=== PATIENT | male | born 1950 | race Caucasian/White ===

== ENCOUNTER 2020-10-09 07:51 | Day surgery (SDC) | payer MEDICARE ==
[2020-09-02 11:31] VITALS: BMI 22.4
[~2020-10-09 07:51] MED LIST: LACTATED RINGERS 1,000 ML IV SCH; ONDANSETRON 4 MG/2 ML VIAL IVP PRN
[2020-10-09 08:21] VITALS: TEMP 98.2
[2020-10-09] MEDS ORDERED: PROPOFOL 10 MG/ML 20 ML VIAL IV ONE (09:10)
[2020-10-09] MEDS ORDERED: LIDOCAINE 1% INJ 10MG/ML (20 ML MDV) ONE (09:10)
--- NOTE | 2020-10-09 09:25 | P.PCN ---
Date of Procedure: 10/09/20 Procedure(s) Performed: BRIEF HISTORY: Patient is a 70-year-old pleasant white female male scheduled for an elective colonoscopy as a part of screening for colorectal neoplasia. In January 2020 when he was in [place] he had a CT of the abdomen and pelvis done that showed abnormal-appearing appendix with the possibility of ruptured appendiceal neoplasm versus appendicitis.. He was subsequently seen by surgery and oncology and recommended associated. However he moved to [place]. PROCEDURE PERFORMED: Colonoscopy. PREOPERATIVE DIAGNOSIS: Sreening for colorectal neoplasia. IV sedation per Anesthesia. PROCEDURE: After informed consent was obtained, the patient, was brought into the endoscopy unit. IV sedation was administered by Anesthesia under continuous monitoring. Digital rectal examination was normal. Initially the Olympus CF-160 flexible video colonoscope was then inserted in the rectum, gradually advanced into the cecum without any difficulty. Careful examination was performed as the scope was gradually being withdrawn. Ileocecal valve and the appendiceal orifice were visualized and appeared normal. Prep was excellent. Mucosa of the cecum, ascending colon, transverse colon, descending colon, sigmoid colon, and rectum appeared normal. Scattered left-sided diverticulosis seen. Retroflexion was performed in the rectum and small internal hemorrhoids were seen. The patient tolerated the procedure well. IMPRESSION: Normal-appearing appendiceal orifice Normal-appearing colon from rectum to cecum with no evidence of colorectal neoplasia . Scattered sigmoid diverticulosis. RECOMMENDATIONS: Findings of this examination were discussed with the patient well as his family. He was advised to have a repeat screening colonoscopy in 10 years.
[2020-10-09 09:41] VITALS: RESP 16
[2020-10-09 09:46] VITALS: BP 129/78; PULSE 77
== END 2020-10-09 10:00 | disposition home or self-care (01) ==
LOC: ORWHC2ENDO 07:51
PROVIDERS: ATTEND Internal Medicine Gastroenterology
DX: K57.30 Diverticulosis of large intestine without perforation or abscess without bleeding (principal); K64.8 Other hemorrhoids; R93.3 Abnormal findings on diagnostic imaging of other parts of digestive tract; K21.9 Gastro-esophageal reflux disease without esophagitis; Z79.82 Long term (current) use of aspirin; Z79.899 Other long term (current) drug therapy
CPT/HCPCS: 45378; J2001; J2704

== ENCOUNTER → 2021-01-31 | Outpatient (CLI) | payer MEDICARE ==
--- NOTE | 2021-02-02 11:30 | CT ---
EXAMINATION TYPE: CT abdomen pelvis w con DATE OF EXAM: 01/31/2021 COMPARISON: None INDICATION: RLQ pain DLP: 714.7 mGycm, Automated exposure control for dose reduction was used. CONTRAST: 100 mL of Isovue 300. Study performed with Oral Contrast TECHNIQUE: Axial images were obtained from above the diaphragm to the pubic rami in the axial plane a t 5 mm thick sections. Reconstructed images are reviewed on the computer in the coronal plane. FINDINGS: Limited CT sections are obtained the lung bases. The lung bases are clear. CT ABDOMEN: Small amount of ascites is present. Free fluid is within the pelvis. Greater on the right . Liver: Normal Spleen: Normal Pancreas: Normal Adrenal glands: The adrenal glands are normal. Gallbladder: Normal Kidneys: No masses are evident. No hydronephrosis is present. There is a 5.7 cm cyst measuring 6 Ho unsfield units on the upper pole lateral left kidney. Small cortical renal cysts on the right kidney on the delayed images. Delayed images were obtained through the kidneys, which remain unremarkable. Aorta: Vascular calcification is within the aorta. Inferior vena cava: Normal. CT PELVIS: Loops of bowel within the abdomen and pelvis are normal. There are loops of bowel which are incom pletely distended or lack oral contrast limiting their evaluation. Appendix: Not identified. Dilated tubular structures not identified. No inflammatory changes are evid ent. Free fluid is within the right lower quadrant near the cecum. Few scattered small lymph nodes ar e present right lower quadrant Urinary bladder: Normal. Genitourinary structures: Prostate is prominent. Osseous structures: No suspicious lytic or sclerotic lesions. Punctate sclerotic areas within the rig ht femoral head may be a small bone island. IMPRESSIONS: 1. Ascites within the pelvis and adjacent to the liver. 2. Renal cysts. 3. Prostate hypertrophy. 4. Appendix is not clearly identified. Clinical management of any suspected appendicitis will be requ ired.
== END ==
LOC: RADCTMAIN 16:00
PROVIDERS: ATTEND Internal Medicine Gastroenterology
DX: N28.89 Other specified disorders of kidney and ureter (principal); R18.8 Other ascites; N40.0 Benign prostatic hyperplasia without lower urinary tract symptoms
CPT/HCPCS: 82565; 84520; 74177; 36415; Q9967